=== PATIENT | female | born 1980 | race Two or more races ===

== ENCOUNTER 2019-11-09 09:22 | Emergency (ER) | payer OTHER ==
[~2019-11-09] VITALS: Ht 165.1 cm; Wt 86.2 kg
[~2019-11-09 09:22] MED LIST: ANTIVERT25 M1 PO; CEFADROXIL500 MG PO; FOLIC ACID1 MG PO; LIPOFLAVOVIT CA1 TAB PO; MOTRIN800 MG PO; PRENATAL1 TAB PO; PROCARDIA90 MG/BLIS PO
[2019-11-09] MEDS ORDERED: HYDRODIURIL12.5 MG (09:41)
== END 2019-11-09 14:53 | disposition home or self-care (01) ==
LOC: ER 09:22
DX: N94.6 Dysmenorrhea, unspecified (principal)

== ENCOUNTER 2020-04-20 07:35 | Outpatient (CLI) | payer OTHER ==
[~2020-04-20 07:35] MED LIST changes: +HYDRODIURIL12.5 MG
== END 2020-04-20 07:42 | disposition home or self-care (01) ==
LOC: RAD 07:35
PROVIDERS: ATTEND General Practice
DX: R05 Cough (principal)

== ENCOUNTER 2020-06-10 13:13 | Outpatient (CLI) | payer OTHER | END 2020-06-10 13:25 | disposition home or self-care (01) | LOC: MAMO-SONO 13:13 → SONOGRAMA 06-11 13:30 | PROVIDERS: ATTEND Obstetrics & Gynecology Gynecologic Oncology | DX: Z12.31 Encounter for screening mammogram for malignant neoplasm of breast (principal) ==

== ENCOUNTER 2021-03-31 16:42 | Emergency (ER) | payer OTHER ==
[~2021-03-31] VITALS: Ht 165.1 cm; Wt 82.6 kg
[2021-03-31] MEDS ORDERED: NORVASC5 MG (17:06)
== END 2021-04-01 | disposition home or self-care (01) ==
LOC: ER 16:42
DX: U07.1 COVID-19 (principal); B34.9 Viral infection, unspecified; R05 Cough; R53.81 Other malaise

== ENCOUNTER 2021-12-28 10:35 | Outpatient (CLI) | payer OTHER ==
[~2021-12-28 10:35] MED LIST changes: +NORVASC5 MG
== END 2021-12-28 11:04 | disposition home or self-care (01) ==
LOC: MAMO-SONO 10:35
PROVIDERS: ATTEND Obstetrics & Gynecology Gynecologic Oncology
DX: D25.9 Leiomyoma of uterus, unspecified (principal); Z12.31 Encounter for screening mammogram for malignant neoplasm of breast; N64.59 Other signs and symptoms in breast; N64.89 Other specified disorders of breast

== ENCOUNTER → 2023-08-02 | Emergency (ER) | payer OTHER ==
[~2023-08-02] VITALS: Ht 165.1 cm; Wt 76.7 kg
[~2023-08-02] MED LIST changes: +TRIAMTERENE-HC1 EAC1
== END | disposition left against medical advice (07) ==
LOC: ER 19:34
DX: Z53.21 Procedure and treatment not carried out due to patient leaving prior to being seen by health care provider (principal)

== ENCOUNTER 2024-02-26 13:18 | Emergency (ER) | payer OTHER ==
[~2024-02-26] VITALS: Ht 165.1 cm; Wt 85.3 kg
[2024-02-26 14:56] LABS: HEMATOCRIT 37.5 % (36.0-45.00); HEMOGLOBIN 13.1 g/dL (12.0-15.00); MEAN CELL VOLUME 89.6 fL (80.00-100.00); MEAN CORPUSCULAR HEMOGLOBIN 31.3 pg (27.00-32.0); MEAN CORPUSCULAR HGB CONC 34.9 g/dl (32.0-36.0); PLATELET COUNT 395 K/uL (150-450); RED BLOOD COUNT 4.18 M/uL (4.00-6.00); RED CELL DISTRIBUTION WIDTH 13.6 % (11.5-14.5)
[2024-02-26 15:33] LABS: ALBUMIN 3.9 gm/dL (3.4-5.0); BILIRUBIN TOTAL 0.4 mg/dL (0.3-1.2); CALCIUM 9.3 mg/dL (8.5-10.1); CREATININE SERUM 0.64 mg/dL (0.55-1.02); GFR 100.81; GLOBULINA 3.9 G/DL (2.4-3.5); POTASSIUM 3.81 mEq/L (3.5-5.1); TOTAL PROTEIN 7.8 gm/dL (6.4-8.2)
[2024-02-26] MEDS ORDERED: KETOROLAC TROMETHAMINE 60 MG VIAL IM ONE ×2 (16:00→16:18)
== END 2024-02-26 16:34 | disposition home or self-care (01) ==
LOC: ER 13:19
PROVIDERS: Nurse Practitioner Family
DX: M94.0 Chondrocostal junction syndrome [Tietze] (principal); I10 Essential (primary) hypertension; Z20.822 Contact with and (suspected) exposure to COVID-19

== ENCOUNTER 2024-03-07 10:17 | Outpatient (CLI) | payer OTHER | END 2024-03-07 10:18 | disposition home or self-care (01) | LOC: NUCLEAR 10:17 | PROVIDERS: ATTEND Family Medicine | DX: I10 Essential (primary) hypertension (principal) ==

== ENCOUNTER 2024-03-26 08:04 | Outpatient (CLI) | payer OTHER | END 2024-03-26 08:05 | disposition home or self-care (01) | LOC: NUCLEAR 08:04 | PROVIDERS: ATTEND Family Medicine | DX: I10 Essential (primary) hypertension (principal) ==

== ENCOUNTER 2024-04-13 16:36 | Emergency (ER) | payer OTHER ==
[~2024-04-13] VITALS: Ht 165.1 cm; Wt 79.4 kg
[2024-04-13] MEDS ORDERED: KETOROLAC TROMETHAMINE 30 MG VIAL IM STA (17:47)
[2024-04-13] MEDS ORDERED: KETOROLAC TROMETHAMINE 60 MG VIAL IM ONE (17:58)
== END 2024-04-13 19:51 | disposition home or self-care (01) ==
LOC: ER 16:38
DX: M25.571 Pain in right ankle and joints of right foot (principal)

== ENCOUNTER 2024-10-23 12:10 | Outpatient (CLI) | payer OTHER | END 2024-10-23 12:20 | disposition home or self-care (01) | LOC: MAMO-SONO 12:10 | DX: N92.0 Excessive and frequent menstruation with regular cycle (principal); Z12.31 Encounter for screening mammogram for malignant neoplasm of breast; S93.409A Sprain of unspecified ligament of unspecified ankle, initial encounter ==

== ENCOUNTER 2025-05-24 17:47 | Emergency (ER) | payer OTHER ==
[~2025-05-24] VITALS: Ht 167.6 cm; Wt 85.3 kg
[2025-05-24] MEDS ORDERED: DEXAMETHASONE SODIUM PHOSPHATE 4 MG/ML VIAL IM STA (18:36)
[2025-05-24] MEDS ORDERED: DEXAMETHASONE SODIUM PHOSPHATE 4 MG/ML VIAL ONE (18:38)
[2025-05-24 18:55] LABS: BASO % 0.3 % (0.1-1.2); EOS # 0.01 (0.04-0.54); EOS % 0.1 % (0.7-7.0); LYMPH # 2.74 (1.18-3.74); LYMPH % 22.9 % (19.3-53.1); MEAN PLATELET VOLUME 8.30 fl (9.4-12.4); MONO # 0.88 (0.24-0.82); MONO % 7.4 % (4.7-12.5); NEUT # 8.26 (1.56-6.13); NEUT % 68.9 % (34.0-71.1); RED CELL DISTRIBUTION WIDTH 12.8 % (11.6-14.4)
[2025-05-24 19:10] LABS: URINE APPEARANCE Cloudy; URINE BILIRRUBIN Negative (NEGATIVE); URINE BLOOD Large; URINE COLOR Yellow; URINE GLUCOSE Negative (NEGATIVE); URINE KETONE Negative (NEGATIVE); URINE LEUKOCYTE Small; URINE NITRATE Negative; URINE PROTEIN Negative (NEGATIVE); URINE UROBILINOGEN 1.0 E.U./dl
[2025-05-24 19:16] LABS: URINE BACTERIA 1102.7 uL (0.0-1933); URINE EPITHELIAL CELLS 56.7 uL (0.0-38.8); URINE RBC 95.1 uL (0.0-20.8); URINE WBC 39.8 uL (0.0-23.2)
[2025-05-24 19:22] LABS: TYPE CELLS SQUAMOUS; URINE CAST 0.00 uL (0.0-1.40)
[2025-05-24 19:25] LABS: BUN CREA RATIO 17.0 (7.0-25.0); CREATININE SERUM 0.78 mg/dL (0.55-1.02); GFR 79.87; GLUCOSE FASTING 70.0 mg/dL (65-100); OSMOLALITY SERUM 278.0 MOSM/KG (275-295)
[2025-05-24 20:05] LABS: INR 0.99
== END 2025-05-24 20:54 | disposition home or self-care (01) ==
LOC: ER 17:47
PROVIDERS: General Practice
DX: N93.9 Abnormal uterine and vaginal bleeding, unspecified (principal); I10 Essential (primary) hypertension